=== PATIENT | female | born 1985 | race Caucasian/White ===

== ENCOUNTER 2016-11-19 19:00 | Inpatient (IN) | payer OTHER ==
--- NOTE | ~2016-11-19 | DS ---
Unit #: [id number] #: [id number] Patient: EUGENIA SANTOYO [id number] [facility] [address] [place] [address] [id number] MR#: [id number] NAME: EUGENIA SANTOYO ROOM: P184 Age: 31 Sex: F Admission Date: 11/19/2016 : 1985 Discharge Date: 11/20/2016 Attending Physician: Jersey Carlson M.D. Primary Care Physician: Generic Doctor Not In System DISCHARGE SUMMARY REASON FOR ADMISSION Eugenia is a 31-year-old woman who came in complaining of increasing problems with heroin and alprazolam dependence. She says she is buying both medicines off the street and cannot stop using independently. She had no suicidal ideation, intent, or plan and was admitted for stabilization. DIAGNOSTIC STUDIES Please see hospital chart. HOSPITAL COURSE The patient was admitted and placed on the benzodiazepine detox protocol, she did admit to mild feelings of depression and permitted initiation of citalopram 20 mg daily. Later that afternoon, the patient went to the nurse manager telecom demanding discharge AGAINST MEDICAL ADVICE, stating that she had a court date the next day although she had previously denied legal entanglements. She was interviewed by the social sciences research scientist, feeder worker power unit operator, and charge nurse who all felt that she was able to continue to give reliable contract for safety and she was discharged AGAINST MEDICAL ADVICE at her request. DISCHARGE DIAGNOSES [employer] [facility] Opiate dependence, withdrawal uncomplicated. [employer] [facility] No diagnosis. [employer] [facility] Opiate withdrawal syndrome. [employer] [facility] [employer] INSTRUCTIONS TO PATIENT Follow up with chemical dependence programming at your option. Resources were given by the social sciences research scientist. DISCHARGE MEDICATIONS None. CONDITION AT DISCHARGE Fair. PROGNOSIS Fair. DIET AND ACTIVITY Unit #: [id number] #: [id number] Patient: EUGENIA SANTOYO Ad erika. Dictated by... Jersey Carlson M.D. PARUL/katiana TD: 11/21/2016 11:39 JOB #: [id number] DISCHARGE SUMMARY Page 1 of 1 X Jersey Carlson MD X DISCHARGE SUMMARY
--- NOTE | ~2016-11-19 | PA ---
Unit #: [id number] #: [id number] Patient: EUGENIA SANTOYO [id number] [facility] [address] [place] [address] [id number] MR#: [id number] NAME: EUGENIA SANTOYO ROOM: P184 Age: 31 Sex: F Admission Date: 11/19/2016 : 1985 Date of Assessment: Attending Physician: Jersey Carlson M.D. Admitting Physician: Jersey Carlson M.D. Primary Care Physician: Generic Doctor Not In System PSYCHIATRIC ASSESSMENT DATE OF SERVICE 11/20/2016. INFORMANTS The patient, partially reliable and OLOP, reliable. CHIEF COMPLAINT Heroin use. HISTORY OF PRESENT ILLNESS Eugenia is a 31-year-old woman, who has been using half a gram of heroin daily for the past 4 years and also illicit alprazolam off the streets. She denied suicidal or homicidal ideation, but could not contract for safety due to her ongoing drug use and was admitted for stabilization. PAST PSYCHIATRIC HISTORY One previous inpatient stay at [facility] for detox. She currently has no psychiatric medication plan. FAMILY PSYCHIATRIC HISTORY The patient has an uncle with addictions. SOCIAL HISTORY The patient denied a history of childhood abuse or neglect. She is a single heterosexual woman and denies any current legal charges. She is a high school graduate, who has been unemployed for 2 years and is currently living with a friend with no independent income. PAST MEDICAL HISTORY No chronic medical problems. MEDICATIONS None currently. ALLERGIES No known medication allergies. SUBSTANCE USE HISTORY As reported. MENTAL STATUS EXAMINATION The patient presented as a mildly disheveled woman, who appeared her stated age. She was cooperative with the examination. Her speech was Unit #: [id number] #: [id number] Patient: EUGENIA SANTOYO spontaneous and easily understood. Her musculoskeletal examination was calm. Her mood was euthymic with a flat affect. She was alert and fully oriented. Her memory and concentration were fair. Her thought processes were goal directed with no psychosis. She had no suicidal ideation, intent, or plan. Insight and judgment, fair. Fund of knowledge and abstraction, fair. ASSETS AND LIABILITIES The patient is youthful and voluntary. Liabilities include inability to maintain sobriety and unstable housing and income. ADMITTING DIAGNOSES AXIS I: Opiate dependence with withdrawal, uncomplicated, F11.23. AXIS II: No diagnosis. AXIS III: Opioid withdrawal. AXIS IV: AXIS V: PSYCHIATRIC PLAN The patient was admitted and placed on the opioid detox protocol. She did agree initiation of citalopram 20 mg daily for treatment of depression. She will enroll in dual diagnosis groups and activities, and a physical examination and laboratory studies will be ordered and reviewed. TREATMENT GOALS Resolution of SI, improvement in insight, and improvement in coping skills. DISCHARGE PLANNING Follow up with [facility]. ESTIMATED LENGTH OF STAY 5 days. Dictated by... Jersey Carlson M.D. PARUL/benito TD: 11/21/2016 13:26 JOB #: [id number] PSYCHIATRIC ASSESSMENT Page 1 of 1 X Jersey Carlson MD X PSYCHIATRIC ASSESSMENT
--- NOTE | ~2016-11-19 | HP ---
Unit #: [id number] #: [id number] Patient: EUGENIA SANTOYO [id number] [place] [address] [id number] MR#: [id number] NAME: EUGENIA SANTOYO ROOM: P184 Age: 31 Sex: F Admission Date: 11/19/2016 : 1985 Attending Physician: Jersey Carlson M.D. Admitting Physician: Jersey Carlson M.D. Primary Care Physician: Generic Doctor Not In System HISTORY AND PHYSICAL NOTE Eugenia is a 31 year old who was admitted and discharged within the first 24 hours. She was not seen for a H & P. Dictated by... Wilda Salas P.A.-C. for Raghav Hung/jonathan TD: 11/20/2016 19:49 JOB #: [id number] HISTORY AND PHYSICAL Page 1 of 1 X Wilda Salas HISTORY AND PHYSICAL
[2016-11-20 09:49] LABS: BASOPHIL% 0.6 % (0-2.5); EOSINOPHIL# 0.1 X10e3 (0-0.7); EOSINOPHIL% 2.6 % (0.0-7.0); HEMATOCRIT 37.4 % (35.0-45.0); HEMOGLOBIN 12.3 gm/dL (12.0-16.0); LYMPHOCYTE# 1.7 X10e3 (1.0-3.5); MEAN CELL VOLUME 80.4 FL (83-96); MEAN CORPUSCULAR HEMOGLOBIN 26.3 PG (28-34); MEAN CORPUSCULAR HGB CONC 32.7 g/dL (30-36); MEAN PLATELET VOLUME 9.1 FL (6.5-11.5); MONOCYTE# 0.5 X10e3 (0-1.0); NEUTROPHIL# 2.8 X10e3 (1.5-7.1); NEUTROPHIL% 53.8 % (40-75); PLATELET COUNT 277 X10e3 (140-420); RED BLOOD COUNT 4.66 X10e (3.90-5.30); RED CELL DISTRIBUTION WIDTH 14.2 % (11.0-15.5); WHITE BLOOD COUNT 5.1 X10e3 (4.0-10.5)
[2016-11-20 09:54] LABS: DIFF IND NO
[2016-11-20 10:11] LABS: ALBUMIN SERUM 3.9 g/dL (3.5-5.0); BILIRUBIN,TOTAL 0.6 mg/dL (0.2-2.0); CALCIUM SERUM 9.2 mg/dL (8.4-10.2); CREATININE SERUM 0.5 mg/dL (0.6-1.4); GLOM FILT RATE Estimated 128.1 mL/min (>60); PROTEIN TOTAL SERUM 7.5 g/dL (6.0-8.3)
== END 2016-11-20 15:46 | disposition left against medical advice (07) | DRG 894 ==
LOC: P1E 19:00
PROVIDERS: Psychiatry & Neurology Psychiatry
PROC: HZ2ZZZZ Detoxification Services for Substance Abuse Treatment (ICD-10-PCS; principal; 2016-11-19)
DX: F11.23 Opioid dependence with withdrawal (principal); Z56.0 Unemployment, unspecified
CPT/HCPCS: 80053; 84703; 85025